=== PATIENT | male | born 1955 | race Caucasian/White ===

== ENCOUNTER 2018-01-01 06:31 | Emergency (ER) | payer MEDICAID ==
--- NOTE | 2018-01-01 07:17 | EDM.PDOC ---
ED HPI GENERAL MEDICAL PROBLEM - General Chief Complaint: Respiratory Problem Stated Complaint: FLU? Time Seen by Provider: 01/01/18 07:05 Source of Information: Reports: Patient, Family History Limitations: Reports: No Limitations - History of Present Illness INITIAL COMMENTS - FREE TEXT/NARRATIVE: 62 yo male presents with about a 5 d hx of rhinorrhea, nasal congestion, sneezing, and mild SOB. No fever. Has a hx of renal transplant. No hx of asthma or CHF. Onset: Gradual Onset Date: 12/26/17 Duration: Day(s):, Constant Location: Reports: Face (nose) Quality: Reports: Other (no pain) Severity: Mild Improves with: Reports: None Worsens with: Reports: None Context: Reports: Sick Contact Associated Symptoms: Reports: Cough (rare), Shortness of Breath (minimal). Denies: Fever/Chills, Rash Treatments NE[employer]ER: Reports: Acetaminophen Chest Pain Score (Numeric/FACES): 5 - Related Data Allergies Allergy/AdvReac Type Severity Reaction Status Date / Time lisinopril Allergy Cough Verified 01/01/18 06:46 Past Medical History HEENT History: Reports: Hard of Hearing, Impaired Vision Cardiovascular History: Reports: High Cholesterol, Hypertension Gastrointestinal History: Reports: GERD Genitourinary History: Reports: Chronic Renal Insuffiency Musculoskeletal History: Reports: Arthritis Endocrine/Metabolic History: Reports: Diabetes, Type II - Infectious Disease History Infectious Disease History: Reports: Chicken Pox, Measles, Mumps - Past Surgical History HEENT Surgical History: Reports: Cataract Surgery, Eye Surgery Other HEENT Surgeries/Procedures: BLEEDING IN EYES FROM DIABETES Other Male Surgeries/Procedures: KIDNEY TRANSPLANT APRIL 2011 Social & Family History - Tobacco Use Smoking Status *Q: Never Smoker - Caffeine Use Caffeine Use: Reports: Coffee - Recreational Drug Use Recreational Drug Use: No ED ROS GENERAL - Review of Systems Review Of Systems: See Below Constitutional: Reports: No Symptoms HEENT: Reports: Rhinitis Respiratory: Reports: Shortness of Breath (mild), Cough (mild). Denies: Wheezing, Pleuritic Chest Pain, Sputum, Hemoptysis Cardiovascular: Reports: No Symptoms GI/Abdominal: Reports: No Symptoms : Reports: No Symptoms Musculoskeletal: Reports: No Symptoms Skin: Reports: No Symptoms Neurological: Reports: No Symptoms ED EXAM, GENERAL - Physical Exam Exam: See Below Exam Limited By: No Limitations General Appearance: Alert, WD/WN, No Apparent Distress Eye Exam: Bilateral Eye: Normal Inspection Ears: Normal External Exam, Normal Canal, Hearing Grossly Normal, Normal TMs Ear Exam: Bilateral Ear: Auricle Normal, Canal Normal, TM normal Nose: Normal Inspection, Normal Mucosa, No Blood Throat/Mouth: Normal Inspection, Normal Lips Head: Atraumatic, Normocephalic Neck: Normal Inspection, Supple, Non-Tender Respiratory/Chest: No Respiratory Distress, Lungs Clear, Normal Breath Sounds, No Accessory Muscle Use Cardiovascular: Regular Rate, Rhythm, No Edema GI/Abdominal: Normal Bowel Sounds, Soft, Non-Tender, No Distention Back Exam: Normal Inspection, Full Range of Motion. No: CVA Tenderness (R), CVA Tenderness (L) Extremities: Normal Inspection, Non-Tender, No Pedal Edema Neurological: Alert, Oriented, CN II-XII Intact, Normal Cognition, No Motor/ Sensory Deficits Psychiatric: Normal Affect, Normal Mood Skin Exam: Warm, Dry, Intact, Normal Color, No Rash Lymphatic: No Adenopathy Course - Vital Signs Last Recorded V/S: Last Vital Signs Temp 37.0 C 01/01/18 06:44 Pulse 73 01/01/18 06:44 Resp 24 H 01/01/18 06:44 BP 148/59 H 01/01/18 06:44 Pulse Ox 97 01/01/18 06:44 Departure - Departure Time of Disposition: 07:16 Disposition: Home, Self-Care 01 Condition: Good Clinical Impression: Viral URI - Discharge Information Referrals: Yvon Michele MD [Primary Care Provider] -
== END 2018-01-01 07:28 | disposition home or self-care (01) ==
LOC: JP.ED 06:31
DX: J06.9 Acute upper respiratory infection, unspecified (principal); E78.00 Pure hypercholesterolemia, unspecified; I12.9 Hypertensive chronic kidney disease with stage 1 through stage 4 chronic kidney disease, or unspecified chronic kidney disease; E11.22 Type 2 diabetes mellitus with diabetic chronic kidney disease; N18.9 Chronic kidney disease, unspecified; Z94.0 Kidney transplant status; Z88.8 Allergy status to other drugs, medicaments and biological substances
CPT/HCPCS: 99283

== ENCOUNTER 2018-01-31 12:38 | Emergency (ER) | payer MEDICAID ==
--- NOTE | 2018-01-31 13:53 | EDM.PDOC ---
ED HPI GENERAL MEDICAL PROBLEM - General Chief Complaint: Respiratory Problem Stated Complaint: PNEUMONIA SYMPTOMS Time Seen by Provider: 01/31/18 13:36 Source of Information: Reports: Patient, Family, RN Notes Reviewed History Limitations: Reports: No Limitations - History of Present Illness INITIAL COMMENTS - FREE TEXT/NARRATIVE: 62-year-old gentleman presents emergency department today with complaint of increasing shortness of breath, he has a known renal transplant does have a history of recurrent pneumonias is currently on antibiotics of Ceftin and azithromycin, he has completed the course of azithromycin started about 5 days ago. He states he has not had much improvement he is still producing greenish yellow sputum feels short of breath gets short of breath on exertion has chest tightness Generalized Pain Score (Numeric/FACES): 6 - Related Data Allergies Allergy/AdvReac Type Severity Reaction Status Date / Time lisinopril AdvReac Cough Verified 01/31/18 13:10 Home Meds: Home Meds Aspirin 81 mg PO DAILY 01/01/18 [History] Benzonatate [Benzonatate] 100 mg PO TID 01/01/18 [History] Furosemide [Furosemide] 40 mg PO DAILY 01/01/18 [History] Insulin Aspart [NovoLOG] 1 unit SQ TID 01/01/18 [History] Insulin Glarg,Human.Rec.Analog [Lantus Solostar] 38 units SQ BID 01/01/18 [ History] Labetalol [Normodyne] 300 mg PO BID 01/01/18 [History] Mycophenolate Mofetil [Cellcept] 500 mg PO BID 01/01/18 [History] Tacrolimus [Tacrolimus] 1 mg PO DAILY 01/01/18 [History] Testosterone [Testosterone] 1 mg IM ASDIRECTED 01/01/18 [History] Amoxicillin/Potassium Clav [Augmentin 875-125 Tablet] 1 each PO BID #20 tablet 01/31/18 [Rx] Calcium Carbonate 1 tab PO BID 01/31/18 [History] Calcium Carbonate/FA/Mag Carb [Magnebind 400 Rx] 1 tab PO DAILY 01/31/18 [ History] Cefuroxime Axetil [Cefuroxime] 1 tab PO BID 01/31/18 [History] Cetirizine [ZyrTEC] 1 tab PO DAILY 01/31/18 [History] Cholecalciferol (Vitamin D3) [Vitamin D3] 1 tab PO DAILY 01/31/18 [History] Lansoprazole [Lansoprazole] 1 tab PO BEDTIME 01/31/18 [History] Lansoprazole [Prevacid] 30 mg PO DAILY 01/31/18 [History] Pravastatin Sodium [Pravastatin (Pravachol)] 40 mg PO DAILY 01/31/18 [History] Tacrolimus [Prograf] 2 mg PO BEDTIME 01/31/18 [History] Tadalafil [Adcirca] 1 tab PO ASDIRECTED 01/31/18 [History] Zolpidem [Ambien] 5 mg PO BEDTIME PRN #10 tab 01/31/18 [Rx] hydrALAZINE [Apresoline] 1 tab PO TID 01/31/18 [History] Past Medical History HEENT History: Reports: Hard of Hearing, Impaired Vision Cardiovascular History: Reports: High Cholesterol, Hypertension Gastrointestinal History: Reports: GERD Genitourinary History: Reports: Chronic Renal Insuffiency Musculoskeletal History: Reports: Arthritis Endocrine/Metabolic History: Reports: Diabetes, Type II Immunologic History: Reports: Solid Organ Transplant Other Immunologic History: kidney transplat Oncologic (Cancer) History: Reports: Other (See Below) Other Oncologic History: "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" - Infectious Disease History Infectious Disease History: Reports: Chicken Pox, Measles, Mumps - Past Surgical History HEENT Surgical History: Reports: Cataract Surgery, Eye Surgery Other HEENT Surgeries/Procedures: BLEEDING IN EYES FROM DIABETES Other Male Surgeries/Procedures: KIDNEY TRANSPLANT APRIL 2011 Musculoskeletal Surgical History: Reports: Shoulder Surgery, Other (See Below) Other Musculoskeletal Surgeries/Procedures:: right shoulder surgery Social & Family History - Tobacco Use Smoking Status *Q: Never Smoker - Caffeine Use Caffeine Use: Reports: Coffee - Recreational Drug Use Recreational Drug Use: No ED ROS GENERAL - Review of Systems Review Of Systems: See Below Constitutional: Reports: Fever (Feverish) HEENT: Reports: No Symptoms Respiratory: Reports: Shortness of Breath, Cough, Sputum Cardiovascular: Reports: Chest Pain (Chest pressure) GI/Abdominal: Reports: No Symptoms : Reports: No Symptoms Musculoskeletal: Reports: No Symptoms Skin: Reports: No Symptoms Neurological: Reports: No Symptoms ED EXAM, GENERAL - Physical Exam Exam: See Below Free Text/Narrative:: General: Male, not in any distress, alert and oriented x3 HEENT: head is atraumatic normocephalic, eyes pupils equal round reactive to light, sclera clear no conjunctivitis appreciated. Ears hearing aids in place bilaterally. Nose no septal deviation, nares are clear, no blood present. Mouth mucosa is moist and pink no erythema or exudate noted in soft palate, tongue is midline uvula is midline, dentition is intact. Neck: Supple no thyromegaly no tracheal deviation. Nodes: Cervical nodes subclavicular nodes nontender no palpable lymphadenopathy noted. Lungs: Coarse breath sounds with rhonchi mid to lower lung contreras bilaterally. CV: Regular rate and rhythm S1 and S2 appreciated no murmurs rubs or gallops noted. Abdomen: Soft, nontender, no palpable masses or organomegaly appreciated, no distention no guarding bowel sounds are present, . Neuro: Cranial nerves II through XII grossly intact Skin: Warm and dry, intact Extremities: No lower extremity edema appreciated, Course - Vital Signs Last Recorded V/S: Last Vital Signs Temp 98.1 F 01/31/18 13:05 Pulse 59 L 01/31/18 15:19 Resp 25 H 01/31/18 15:19 BP 156/67 H 01/31/18 15:19 Pulse Ox 90 L 01/31/18 15:19 - Orders/Labs/Meds Orders: Active Orders 24 hr Category Date Time Status EKG Documentation Completion [RC] ASDIRECTED Care 01/31/18 13:49 Active Vital Signs [RC] Q1H Care 01/31/18 13:43 Active CULTURE BLOOD [BC] Urgent Lab 01/31/18 13:55 Received CULTURE BLOOD [BC] Urgent Lab 01/31/18 14:05 Received Blood Culture x2 Reflex Set [OM.PC] Urgent Oth 01/31/18 13:43 Ordered EKG 12 Lead [EK] Stat Ther 01/31/18 13:48 Ordered Labs: Laboratory Tests 01/31/18 01/31/18 01/31/18 Range/Units 13:55 13:55 13:55 WBC 9.1 (4.5-11.0) K/uL RBC 4.41 (4.30-5.90) M/uL Hgb 10.9 L (12.0-15.0) g/dL Hct 34.5 L (40.0-54.0) % MCV 78 L (80-98) fL MCH 25 L (27-31) pg MCHC 32 (32-36) % Plt Count 285 (150-400) K/uL Neut % (Auto) 76 H (36-66) % Lymph % (Auto) 14 L (24-44) % [place] % (Auto) 9 H (2-6) % Eos % (Auto) 1 L (2-4) % Baso % (Auto) 0 (0-1) % Sodium 140 (140-148) mmol/L Potassium 4.6 (3.6-5.2) mmol/L Chloride 106 (100-108) mmol/L Carbon Dioxide 22 (21-32) mmol/L Anion Gap 11.9 (5.0-14.0) mmol/L BUN 42 H (7-18) mg/dL Creatinine 2.1 H (0.8-1.3) mg/dL Est Cr Clr Drug Dosing 33.33 mL/min Estimated GFR (MDRD) 32 L (>60) Glucose 187 H (74-106) mg/dL Lactic Acid 1.0 (0.4-2.0) mmol/L Calcium 8.3 L (8.5-10.1) mg/dL Total Bilirubin 0.5 (0.2-1.0) mg/dL AST 23 (15-37) U/L ALT 25 (12-78) U/L Alkaline Phosphatase 64 (46-116) U/L Troponin I (0.000-0.056) ng/mL C-Reactive Protein 20.06 H (0.0-0.3) mg/dL Total Protein 6.0 L (6.4-8.2) g/dL Albumin 2.3 L (3.4-5.0) g/dL Globulin 3.7 H (2.3-3.5) g/dL Albumin/Globulin Ratio 0.6 L (1.2-2.2) Urine Color Urine Appearance Urine pH (4.5-8.0) Ur Specific [place] (1.008-1.030) Urine Protein (NEGATIVE) mg/dL Urine Glucose (UA) (NEGATIVE) mg/dL Urine Ketones (NEGATIVE) mg/dL Urine Occult Blood (NEGATIVE) Urine Nitrite (NEGAITVE) Urine Bilirubin (NEGATIVE) Urine Urobilinogen (NORMAL) mg/dL Ur Leukocyte Esterase (NEGATIVE) Urine RBC (0-5) Urine WBC (0-5) Ur Epithelial Cells Amorphous Sediment Urine Bacteria Urine Mucus 01/31/18 01/31/18 Range/Units 13:55 14:48 WBC (4.5-11.0) K/uL RBC (4.30-5.90) M/uL Hgb (12.0-15.0) g/dL Hct (40.0-54.0) % MCV (80-98) fL MCH (27-31) pg MCHC (32-36) % Plt Count (150-400) K/uL Neut % (Auto) (36-66) % Lymph % (Auto) (24-44) % [place] % (Auto) (2-6) % Eos % (Auto) (2-4) % Baso % (Auto) (0-1) % Sodium (140-148) mmol/L Potassium (3.6-5.2) mmol/L Chloride (100-108) mmol/L Carbon Dioxide (21-32) mmol/L Anion Gap (5.0-14.0) mmol/L BUN (7-18) mg/dL Creatinine (0.8-1.3) mg/dL Est Cr Clr Drug Dosing mL/min Estimated GFR (MDRD) (>60) Glucose (74-106) mg/dL Lactic Acid (0.4-2.0) mmol/L Calcium (8.5-10.1) mg/dL Total Bilirubin (0.2-1.0) mg/dL AST (15-37) U/L ALT (12-78) U/L Alkaline Phosphatase (46-116) U/L Troponin I 0.033 (0.000-0.056) ng/mL C-Reactive Protein (0.0-0.3) mg/dL Total Protein (6.4-8.2) g/dL Albumin (3.4-5.0) g/dL Globulin (2.3-3.5) g/dL Albumin/Globulin Ratio (1.2-2.2) Urine Color Yellow Urine Appearance Clear Urine pH 5.0 (4.5-8.0) Ur Specific [place] 1.010 (1.008-1.030) Urine Protein 30 H (NEGATIVE) mg/dL Urine Glucose (UA) Normal (NEGATIVE) mg/dL Urine Ketones Negative (NEGATIVE) mg/dL Urine Occult Blood Negative (NEGATIVE) Urine Nitrite Negative (NEGAITVE) Urine Bilirubin Negative (NEGATIVE) Urine Urobilinogen Normal (NORMAL) mg/dL Ur Leukocyte Esterase Negative (NEGATIVE) Urine RBC 0-5 (0-5) Urine WBC 0-5 (0-5) Ur Epithelial Cells Rare Amorphous Sediment Not seen Urine Bacteria Not seen Urine Mucus Not seen Meds: Medications Discontinued Medications Generic Name Dose Route Start Last Admin Trade Name Freq PRN Reason Stop Dose Admin Ceftriaxone Sodium 1 gm/ 0 gm 01/31/18 15:35 Lidocaine HCl 2.1 ml IM 01/31/18 15:36 ONETIME ONE Departure - Departure Time of Disposition: 15:41 Disposition: Home, Self-Care 01 Condition: Fair Clinical Impression: CAP (community acquired pneumonia) Qualifiers: Laterality: right Lung location: lower lobe of lung Qualified Code(s): J18.1 - Lobar pneumonia, unspecified organism - Discharge Information Prescriptions: Amoxicillin/Potassium Clav [Augmentin 875-125 Tablet] 1 each PO BID #20 tablet Zolpidem [Ambien] 5 mg PO BEDTIME PRN #10 tab PRN Reason: Sleep Referrals: Yvon Michele MD [Primary Care Provider] - Forms: ED Department Discharge Additional Instructions: Stop antibiotics of Ceftin, start antibiotics of Augmentin, use Ambien as needed for sleep symptoms, recommend close follow-up with your primary care provider on or Tuesday of this week - My Orders Last 24 Hours: My Active Orders 01/31/18 13:43 Vital Signs [RC] Q1H Blood Culture x2 Reflex Set [OM.PC] Urgent 01/31/18 13:48 EKG 12 Lead [EK] Stat 01/31/18 13:49 EKG Documentation Completion [RC] ASDIRECTED 01/31/18 13:55 CULTURE BLOOD [BC] Urgent 01/31/18 14:05 CULTURE BLOOD [BC] Urgent - Assessment/Plan Last 24 Hours: My Active Orders 01/31/18 13:43 Vital Signs [RC] Q1H Blood Culture x2 Reflex Set [OM.PC] Urgent 01/31/18 13:48 EKG 12 Lead [EK] Stat 01/31/18 13:49 EKG Documentation Completion [RC] ASDIRECTED 01/31/18 13:55 CULTURE BLOOD [BC] Urgent 01/31/18 14:05 CULTURE BLOOD [BC] Urgent Plan: Assessment Acuity = acute Site and laterality = community acquired pneumonia complicated patient with known history of renal transplant on Prograf Etiology = probable bacterial cause Manifestations = dyspnea Location of injury = Home Lab values = hemoglobin low at 10.9 consistent with macro chromic anemia creatinine elevated at 2.1 consistent with chronic renal failure stage G IIIB lactic acid normal 1.0 CRP elevated at 20 albumin low at 2.3 consistent hypoalbuminemia urinalysis reveals 30 of protein consistent proteinuria chest x- ray shows right lower lobe pneumonia EKG demonstrates sinus rhythm with poor R- wave progression Plan I did review lab work EKG and chest x-ray results with him because he is slowly improving elected to change antibiotics he has completed a course of azithromycin and almost fully completed the course of Ceftin. When change antibiotics to Augmentin 875 by mouth twice a day 10 days he was given 1 g Rocephin now as well as Ambien 5 mg by mouth daily at bedtime when necessary total #10 close follow-up by him follow-up with primary care in 2-3 days for reevaluation This note was dictated using [employer] voice recognition software please call with any questions on syntax or dao.
--- NOTE | 2018-01-31 14:38 | CR ---
Chest 2V FINDINGS: There is patchy infiltrate in the central right lung as well as right lower lobe regions. L eft lung is unremarkable. There is cardiac enlargement. The vascular structures appear within normal limits. Impression: 1. Infiltrate of the right mid and lower lung contreras consistent with underlying pneumonia. Follow-up recommended to confirm resolution.
[2018-01-31] MEDS ORDERED: cefTRIAXone 1 GM, Lidocaine 1% 2.1 ML IM ONE ×2 (15:35)
== END 2018-01-31 15:56 | disposition home or self-care (01) ==
LOC: JP.ED 12:38
DX: J18.9 Pneumonia, unspecified organism (principal); I12.9 Hypertensive chronic kidney disease with stage 1 through stage 4 chronic kidney disease, or unspecified chronic kidney disease; N18.9 Chronic kidney disease, unspecified; K21.9 Gastro-esophageal reflux disease without esophagitis; E78.00 Pure hypercholesterolemia, unspecified; Z94.0 Kidney transplant status; Z88.8 Allergy status to other drugs, medicaments and biological substances; Z79.82 Long term (current) use of aspirin; Z79.4 Long term (current) use of insulin; Z79.899 Other long term (current) drug therapy
CPT/HCPCS: 36415; 71046; 80053; 81001; 83605; 84484; 85025; 86140; 87040; 87804; 93005; 96372; 99284; J0696

== ENCOUNTER 2018-02-01 11:36 | Emergency (ER) | payer MEDICAID ==
--- NOTE | 2018-02-01 12:50 | EDM.PDOC ---
ED HPI GENERAL MEDICAL PROBLEM - General Chief Complaint: Respiratory Problem Stated Complaint: PNEUMONIA WORSE Time Seen by Provider: 02/01/18 12:21 Source of Information: Reports: Patient, RN Notes Reviewed History Limitations: Reports: No Limitations - History of Present Illness INITIAL COMMENTS - FREE TEXT/NARRATIVE: 62 yo gentleman presents to emergency department today with complaint of shortness of breath and confusion. I had the opportunity to evaluate him yesterday at which time chest x-ray confirmed a right lower lobe pneumonia he had completed a course of azithromycin and almost completed a course of Ceftin with 5 total days of antibiotics. At that time blood work did not show signs of sepsis his oxygen saturation remained 90-91%. Antibiotics were switched to Augmentin with one dose of Rocephin yesterday. - Related Data Allergies Allergy/AdvReac Type Severity Reaction Status Date / Time lisinopril AdvReac Cough Verified 02/01/18 12:02 Home Meds: Home Meds Aspirin 81 mg PO DAILY 01/01/18 [History] Benzonatate [Benzonatate] 100 mg PO TID 01/01/18 [History] Furosemide [Furosemide] 40 mg PO DAILY 01/01/18 [History] Insulin Aspart [NovoLOG] 1 unit SQ TID 01/01/18 [History] Insulin Glarg,Human.Rec.Analog [Lantus Solostar] 38 units SQ BID 01/01/18 [ History] Labetalol [Normodyne] 300 mg PO BID 01/01/18 [History] Mycophenolate Mofetil [Cellcept] 500 mg PO BID 01/01/18 [History] Tacrolimus [Tacrolimus] 1 mg PO DAILY 01/01/18 [History] Testosterone [Testosterone] 1 mg IM ASDIRECTED 01/01/18 [History] Amoxicillin/Potassium Clav [Augmentin 875-125 Tablet] 1 each PO BID #20 tablet 01/31/18 [Rx] Calcium Carbonate/FA/Mag Carb [Magnebind 400 Rx] 1 tab PO DAILY 01/31/18 [ History] Cetirizine [ZyrTEC] 1 tab PO DAILY 01/31/18 [History] Cholecalciferol (Vitamin D3) [Vitamin D3] 1 tab PO DAILY 01/31/18 [History] Lansoprazole [Lansoprazole] 1 tab PO BEDTIME 01/31/18 [History] Lansoprazole [Prevacid] 30 mg PO DAILY 01/31/18 [History] Pravastatin Sodium [Pravastatin (Pravachol)] 40 mg PO BEDTIME 01/31/18 [History] Tacrolimus [Prograf] 2 mg PO BEDTIME 01/31/18 [History] Tadalafil [Adcirca] 1 tab PO ASDIRECTED 01/31/18 [History] Zolpidem [Ambien] 5 mg PO BEDTIME PRN #10 tab 01/31/18 [Rx] hydrALAZINE [Apresoline] 1 tab PO TID 01/31/18 [History] Calcium Carbonate/Vitamin D3 [Calcium 600 + Vit D 400 Softgl] 1 tab PO BEDTIME 02/01/18 [History] Past Medical History HEENT History: Reports: Hard of Hearing, Impaired Vision Cardiovascular History: Reports: High Cholesterol, Hypertension Gastrointestinal History: Reports: GERD Genitourinary History: Reports: Chronic Renal Insuffiency Musculoskeletal History: Reports: Arthritis Endocrine/Metabolic History: Reports: Diabetes, Type II Immunologic History: Reports: Solid Organ Transplant Other Immunologic History: kidney transplat Oncologic (Cancer) History: Reports: Other (See Below) Other Oncologic History: "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" - Infectious Disease History Infectious Disease History: Reports: Chicken Pox, Measles, Mumps - Past Surgical History HEENT Surgical History: Reports: Cataract Surgery, Eye Surgery Other HEENT Surgeries/Procedures: BLEEDING IN EYES FROM DIABETES Other Male Surgeries/Procedures: KIDNEY TRANSPLANT APRIL 2011 Musculoskeletal Surgical History: Reports: Shoulder Surgery, Other (See Below) Other Musculoskeletal Surgeries/Procedures:: right shoulder surgery Social & Family History - Tobacco Use Smoking Status *Q: Never Smoker - Caffeine Use Caffeine Use: Reports: Coffee - Recreational Drug Use Recreational Drug Use: No ED ROS GENERAL - Review of Systems Review Of Systems: See Below Constitutional: Reports: Weakness, Fatigue, Other (Confusion). Denies: Fever, Chills HEENT: Reports: No Symptoms Respiratory: Reports: Shortness of Breath Cardiovascular: Reports: No Symptoms GI/Abdominal: Reports: No Symptoms : Reports: No Symptoms Musculoskeletal: Reports: No Symptoms Skin: Reports: No Symptoms Neurological: Reports: Confusion ED EXAM, GENERAL - Physical Exam Exam: See Below Exam Limited By: No Limitations General Appearance: Alert, Mild Distress Eye Exam: Bilateral Eye: Normal Inspection Nose: Normal Inspection, Normal Mucosa, No Blood Throat/Mouth: Normal Inspection, Normal Lips, Normal Teeth, Normal Gums, Normal Oropharynx, Normal Voice, No Airway Compromise Head: Atraumatic, Normocephalic Neck: Normal Inspection, Supple, Non-Tender, Full Range of Motion Respiratory/Chest: No Respiratory Distress, Lungs Clear, Normal Breath Sounds, No Accessory Muscle Use Cardiovascular: Regular Rate, Rhythm, No Murmur GI/Abdominal: Soft, Non-Tender Extremities: No Pedal Edema Course - Vital Signs Last Recorded V/S: Last Vital Signs Temp 98.2 F 02/01/18 11:55 Pulse 61 02/01/18 15:00 Resp 26 H 02/01/18 15:00 BP 134/60 02/01/18 15:00 Pulse Ox 86 L 02/01/18 15:00 - Orders/Labs/Meds Orders: Active Orders 24 hr Category Date Time Status Peripheral IV Care [RC] . DIRECTED Care 02/01/18 12:56 Active Vital Signs [RC] Q1H Care 02/01/18 12:28 Active Chest wo Cont [CT] Stat Exams 02/01/18 13:59 Taken Sodium Chloride 0.9% [Saline Flush] Med 02/01/18 12:56 Active 10 ml FLUSH ASDIRECTED PRN Peripheral IV Insertion Adult [OM.PC] Urgent Oth 02/01/18 12:56 Ordered Medication Orders Sodium Chloride (Saline Flush) 10 ml FLUSH ASDIRECTED PRN PRN Reason: Keep Vein Open Last Admin: 02/01/18 13:30 Dose: 10 ml Labs: Laboratory Tests 02/01/18 02/01/18 02/01/18 Range/Units 12:28 12:30 12:38 WBC 8.2 (4.5-11.0) K/uL RBC 4.48 (4.30-5.90) M/uL Hgb 11.0 L (12.0-15.0) g/dL Hct 35.2 L (40.0-54.0) % MCV 79 L (80-98) fL MCH 25 L (27-31) pg MCHC 31 L (32-36) % Plt Count 316 (150-400) K/uL Neut % (Auto) 74 H (36-66) % Lymph % (Auto) 14 L (24-44) % Clarke % (Auto) 11 H (2-6) % Eos % (Auto) 1 L (2-4) % Baso % (Auto) 0 (0-1) % D-Dimer, Quantitative 781 H (0.0-400.0) ng/mL Puncture Site ABG pH (7.350-7.450) ABG pCO2 (35.0-42.0) mmHg ABG pO2 (75.0-100.0) mmHg ABG HCO3 (22.0-26.0) mmol/L ABG Total CO2 (23.0-27.0) mmol/L ABG O2 Saturation (95.0-98.0) % ABG O2 Content (15.0-23.0) %vol ABG Base Excess mm/L ABG Hemoglobin (13.5-18.0) g/dL ABG Oxyhemoglobin % ABG Carboxyhemoglobin (0.0-1.6) % ABG Methemoglobin % Gurdeep Test O2 Delivery Device Sodium (140-148) mmol/L Potassium (3.6-5.2) mmol/L Chloride (100-108) mmol/L Carbon Dioxide (21-32) mmol/L Anion Gap (5.0-14.0) mmol/L BUN (7-18) mg/dL Creatinine (0.8-1.3) mg/dL Est Cr Clr Drug Dosing mL/min Estimated GFR (MDRD) (>60) Glucose (74-106) mg/dL Lactic Acid (0.4-2.0) mmol/L Calcium (8.5-10.1) mg/dL Total Bilirubin (0.2-1.0) mg/dL AST (15-37) U/L ALT (12-78) U/L Alkaline Phosphatase (46-116) U/L C-Reactive Protein (0.0-0.3) mg/dL NT-Pro-B Natriuret Pep (5-125) pg/mL Total Protein (6.4-8.2) g/dL Albumin (3.4-5.0) g/dL Globulin (2.3-3.5) g/dL Albumin/Globulin Ratio (1.2-2.2) Urine Color Yellow Urine Appearance Clear Urine pH 6.0 (4.5-8.0) Ur Specific [place] 1.015 (1.008-1.030) Urine Protein 30 H (NEGATIVE) mg/dL Urine Glucose (UA) Normal (NEGATIVE) mg/dL Urine Ketones Negative (NEGATIVE) mg/dL Urine Occult Blood Negative (NEGATIVE) Urine Nitrite Negative (NEGAITVE) Urine Bilirubin Negative (NEGATIVE) Urine Urobilinogen Normal (NORMAL) mg/dL Ur Leukocyte Esterase Negative (NEGATIVE) Urine RBC 0-5 (0-5) Urine WBC 0-5 (0-5) Ur Epithelial Cells Not seen Amorphous Sediment Not seen Urine Bacteria Few Urine Mucus Not seen 02/01/18 02/01/18 02/01/18 Range/Units 12:38 12:38 12:39 WBC (4.5-11.0) K/uL RBC (4.30-5.90) M/uL Hgb (12.0-15.0) g/dL Hct (40.0-54.0) % MCV (80-98) fL MCH (27-31) pg MCHC (32-36) % Plt Count (150-400) K/uL Neut % (Auto) (36-66) % Lymph % (Auto) (24-44) % Clarke % (Auto) (2-6) % Eos % (Auto) (2-4) % Baso % (Auto) (0-1) % D-Dimer, Quantitative (0.0-400.0) ng/mL Puncture Site Lt radial ABG pH 7.468 H (7.350-7.450) ABG pCO2 32.4 L (35.0-42.0) mmHg ABG pO2 54.9 L (75.0-100.0) mmHg ABG HCO3 23.2 (22.0-26.0) mmol/L ABG Total CO2 21.0 L (23.0-27.0) mmol/L ABG O2 Saturation 87.3 L (95.0-98.0) % ABG O2 Content 13.1 L (15.0-23.0) %vol ABG Base Excess 0.4 mm/L ABG Hemoglobin 10.9 L (13.5-18.0) g/dL ABG Oxyhemoglobin 85.5 % ABG Carboxyhemoglobin 1.3 (0.0-1.6) % ABG Methemoglobin 0.8 % Gurdeep Test Passed O2 Delivery Device Room air Sodium 142 (140-148) mmol/L Potassium 4.4 (3.6-5.2) mmol/L Chloride 108 (100-108) mmol/L Carbon Dioxide 24 (21-32) mmol/L Anion Gap 9.9 (5.0-14.0) mmol/L BUN 38 H (7-18) mg/dL Creatinine 1.8 H (0.8-1.3) mg/dL Est Cr Clr Drug Dosing 37.49 mL/min Estimated GFR (MDRD) 39 L (>60) Glucose 50 L (74-106) mg/dL Lactic Acid 0.7 (0.4-2.0) mmol/L Calcium 8.7 (8.5-10.1) mg/dL Total Bilirubin 0.4 (0.2-1.0) mg/dL AST 25 (15-37) U/L ALT 29 (12-78) U/L Alkaline Phosphatase 63 (46-116) U/L C-Reactive Protein 15.03 H (0.0-0.3) mg/dL NT-Pro-B Natriuret Pep (5-125) pg/mL Total Protein 5.9 L (6.4-8.2) g/dL Albumin 2.3 L (3.4-5.0) g/dL Globulin 3.6 H (2.3-3.5) g/dL Albumin/Globulin Ratio 0.6 L (1.2-2.2) Urine Color Urine Appearance Urine pH (4.5-8.0) Ur Specific [place] (1.008-1.030) Urine Protein (NEGATIVE) mg/dL Urine Glucose (UA) (NEGATIVE) mg/dL Urine Ketones (NEGATIVE) mg/dL Urine Occult Blood (NEGATIVE) Urine Nitrite (NEGAITVE) Urine Bilirubin (NEGATIVE) Urine Urobilinogen (NORMAL) mg/dL Ur Leukocyte Esterase (NEGATIVE) Urine RBC (0-5) Urine WBC (0-5) Ur Epithelial Cells Amorphous Sediment Urine Bacteria Urine Mucus 02/01/18 Range/Units 12:56 WBC (4.5-11.0) K/uL RBC (4.30-5.90) M/uL Hgb (12.0-15.0) g/dL Hct (40.0-54.0) % MCV (80-98) fL MCH (27-31) pg MCHC (32-36) % Plt Count (150-400) K/uL Neut % (Auto) (36-66) % Lymph % (Auto) (24-44) % Clarke % (Auto) (2-6) % Eos % (Auto) (2-4) % Baso % (Auto) (0-1) % D-Dimer, Quantitative (0.0-400.0) ng/mL Puncture Site ABG pH (7.350-7.450) ABG pCO2 (35.0-42.0) mmHg ABG pO2 (75.0-100.0) mmHg ABG HCO3 (22.0-26.0) mmol/L ABG Total CO2 (23.0-27.0) mmol/L ABG O2 Saturation (95.0-98.0) % ABG O2 Content (15.0-23.0) %vol ABG Base Excess mm/L ABG Hemoglobin (13.5-18.0) g/dL ABG Oxyhemoglobin % ABG Carboxyhemoglobin (0.0-1.6) % ABG Methemoglobin % Gurdeep Test O2 Delivery Device Sodium (140-148) mmol/L Potassium (3.6-5.2) mmol/L Chloride (100-108) mmol/L Carbon Dioxide (21-32) mmol/L Anion Gap (5.0-14.0) mmol/L BUN (7-18) mg/dL Creatinine (0.8-1.3) mg/dL Est Cr Clr Drug Dosing mL/min Estimated GFR (MDRD) (>60) Glucose (74-106) mg/dL Lactic Acid (0.4-2.0) mmol/L Calcium (8.5-10.1) mg/dL Total Bilirubin (0.2-1.0) mg/dL AST (15-37) U/L ALT (12-78) U/L Alkaline Phosphatase (46-116) U/L C-Reactive Protein (0.0-0.3) mg/dL NT-Pro-B Natriuret Pep 2268 H (5-125) pg/mL Total Protein (6.4-8.2) g/dL Albumin (3.4-5.0) g/dL Globulin (2.3-3.5) g/dL Albumin/Globulin Ratio (1.2-2.2) Urine Color Urine Appearance Urine pH (4.5-8.0) Ur Specific [place] (1.008-1.030) Urine Protein (NEGATIVE) mg/dL Urine Glucose (UA) (NEGATIVE) mg/dL Urine Ketones (NEGATIVE) mg/dL Urine Occult Blood (NEGATIVE) Urine Nitrite (NEGAITVE) Urine Bilirubin (NEGATIVE) Urine Urobilinogen (NORMAL) mg/dL Ur Leukocyte Esterase (NEGATIVE) Urine RBC (0-5) Urine WBC (0-5) Ur Epithelial Cells Amorphous Sediment Urine Bacteria Urine Mucus Meds: Medications Generic Name Dose Route Start Last Admin Trade Name Freq PRN Reason Stop Dose Admin Sodium Chloride 10 ml 02/01/18 12:56 02/01/18 13:30 Saline Flush FLUSH 10 ml ASDIRECTED PRN Administration Keep Vein Open Discontinued Medications Generic Name Dose Route Start Last Admin Trade Name Freq PRN Reason Stop Dose Admin Lactated Ringer's 1,000 mls @ 500 mls/hr 02/01/18 12:56 02/01/18 13:29 Ringers, Lactated IV 02/01/18 14:55 500 mls/hr BOLUS ONE Administration Meropenem 1 gm/ Sodium 50 mls @ 100 mls/hr 02/01/18 15:54 02/01/18 16:17 Chloride IV 02/01/18 16:23 100 mls/hr ONETIME ONE Administration Departure - Departure Time of Disposition: 16:51 Disposition: DC/Tfer to Acute Hospital 02 Condition: Fair Clinical Impression: CAP (community acquired pneumonia) Qualifiers: Laterality: right Lung location: lower lobe of lung Qualified Code(s): J18.1 - Lobar pneumonia, unspecified organism - Discharge Information Referrals: Yvon Michele MD [Primary Care Provider] - Forms: ED Department Discharge - My Orders Last 24 Hours: My Active Orders 02/01/18 12:28 Vital Signs [RC] Q1H 02/01/18 12:56 Peripheral IV Care [RC] . DIRECTED Sodium Chloride 0.9% [Saline Flush] 10 ml FLUSH ASDIRECTED PRN Peripheral IV Insertion Adult [OM.PC] Urgent 02/01/18 13:59 Chest wo Cont [CT] Stat - Assessment/Plan Last 24 Hours: My Active Orders 02/01/18 12:28 Vital Signs [RC] Q1H 02/01/18 12:56 Peripheral IV Care [RC] . DIRECTED Sodium Chloride 0.9% [Saline Flush] 10 ml FLUSH ASDIRECTED PRN Peripheral IV Insertion Adult [OM.PC] Urgent 02/01/18 13:59 Chest wo Cont [CT] Stat Plan: Assessment Acuity = acute Site and laterality = community-acquired pneumonia complicated patient with history of renal transplant on Prograf also diabetes mellitus type 2 Etiology = probable bacterial cause Manifestations = hypoxia, confusion Location of injury = Home Lab values = hemoglobin low 11.0 consistent microchromic anemia d-dimer elevated 781 of unclear significance ABG reveals a pH of 7.46 PCO2 32.4 PO2 of 54.9 and a bicarbonate of 23.2 consistent with primary respiratory alkalosis creatinine elevated 1.8 consistent with chronic renal failure stage G IIIB CRP elevated at 15 BNP elevated at 2268 consistent with fluid overload type pattern albumin low at 2.[address] scan of the chest without contrast reveals bilateral patchy infiltrates consistent with a pneumonia Plan Called discussed case with Dr. Morejon hospitalist plant taxonomist at [facility] kindly accepted the patient in transport, antibiotics received over the last week include azithromycin, Ceftin, Rocephin, Augmentin, meropenem , he'll be transported via private vehicle This note was dictated using [email or web address] voice recognition software please call with any questions on syntax or dao.
[2018-02-01] MEDS ORDERED: Lactated Ringers 1,000 ML IV ONE (12:56)
[2018-02-01] MEDS ORDERED: Sodium Chloride 0.9% 10 ML Syringe FLUSH PRN (12:56)
== END 2018-02-01 17:25 ==
LOC: JP.ED 11:36
DX: J18.9 Pneumonia, unspecified organism (principal); I12.9 Hypertensive chronic kidney disease with stage 1 through stage 4 chronic kidney disease, or unspecified chronic kidney disease; E78.00 Pure hypercholesterolemia, unspecified; E11.22 Type 2 diabetes mellitus with diabetic chronic kidney disease; N18.9 Chronic kidney disease, unspecified; Z88.8 Allergy status to other drugs, medicaments and biological substances; Z79.82 Long term (current) use of aspirin; Z79.4 Long term (current) use of insulin; Z79.899 Other long term (current) drug therapy
CPT/HCPCS: 36415; 36600; 71250; 80053; 81001; 82803; 83605; 83880; 85025; 85379; 86140; 96361; 96365; 99285; J2185; J7050; J7120